=== PATIENT | female | born 1945 | race Caucasian/White ===

== ENCOUNTER → 2024-06-30 13:37 | Outpatient (REF) | payer MEDICARE, OTHER, SELFPAY | LOC: HWRAD 13:37 | PROVIDERS: ATTENDING PHYSICIAN Specialist | DX: Z87.442 Personal history of urinary calculi (principal) | CPT/HCPCS: 74150 ==

== ENCOUNTER → 2024-08-02 09:03 | Outpatient (REF) | payer MEDICARE, OTHER, SELFPAY ==
[2024-08-02 11:25] LABS: Hematocrit 41.8 % (37.0-47.0); Hemoglobin 14.1 g/dL (12.0-16.0); Mean Corp Hgb Conc. 33.7 g/dL (33.0-37.0); Mean Corpuscular Hgb 31.8 pg (27.0-31.0); Mean Corpuscular Volume 94.4 fL (81.0-99.0); Mean Platelet Volume 9.6 fL (7.4-10.4); Platelet Count 387 10^3/uL (130-400); Red Blood Cell Count 4.43 10^6/uL (4.20-5.40); Red Cell Dist. Width 12.5 % (11.5-14.5); White Blood Cell Count 7.4 10^3/uL (4.8-10.8)
[2024-08-02 11:49] LABS: Blood Urea Nitrogen 21 mg/dl (7-17); Calcium 10.5 mg/dl (8.4-10.2); Carbon Dioxide 28 mmol/L (22-30); Chloride 108 mmol/L (98-107); Glucose 96 mg/dl (70-99); Sodium 143 mmol/L (135-145); eGFR > 60.00
== END ==
LOC: SDSPAT 09:03
PROVIDERS: ATTENDING PHYSICIAN Specialist; FAMILY PHYSICIAN Internal Medicine
DX: Z01.818 Encounter for other preprocedural examination (principal)
CPT/HCPCS: 36415; 80048; 85027; 93005

== ENCOUNTER 2024-08-04 06:16 | Day surgery (SDC) | payer MEDICARE, OTHER, SELFPAY ==
[2024-08-02 09:09] VITALS: BMI 24.7
[2024-08-04] VITALS (7 sets, daily range): BP systolic 117–139; BP diastolic 65–72; BMI 24.7
[2024-08-04] MEDS: Pyridium 200 MG PO (07:52)
[2024-08-04] MEDS: NORMOSOL-R/PLASMALYTE-A 1000 IV (07:52)
== END 2024-08-04 11:00 | disposition home or self-care (01) ==
LOC: SDS 06:16
PROVIDERS: ATTENDING PHYSICIAN Specialist
DX: N20.0 Calculus of kidney (principal)
CPT/HCPCS: 52356; 74018; 76000; 82365; C1894; C2617